=== PATIENT | female | born 1985 | race Caucasian/White ===

== ENCOUNTER 2017-04-07 16:45 | Emergency (ER) | payer BC ==
[2017-04-07 19:00] VITALS: BP 138/80
--- NOTE | 2017-04-07 19:39 | ED ---
Back Pain - HPI Summary HPI Summary: 32 yr old fell on ice two days ago, and landed on tailbone. she has pain left lateral neck, mid thoracic spine, low lumbar and left pelvis and tailbone area. Pain is moderate. No fever and no chills. No focal weakness. No other complaints. - History of Current Complaint Chief Complaint: UCUpperExtremity Stated Complaint: BACK PAIN S/P FALL ON 04/05 Time Seen by Provider: 04/07/17 19:04 Hx Last Menstrual Period: 04/03/17 Pain Intensity: 7 - Allergies/Home Medications Allergies/Adverse Reactions: Allergies Allergy/AdvReac Type Severity Reaction Status Date / Time No Known Allergies Allergy Verified 04/07/17 19:01 Home Medications: Home Medications Citalopram TAB* [CeleXA TAB*] 10 mg PO DAILY 04/07/17 [History Confirmed ] Ibuprofen TAB* [Advil TAB*] 800 mg PO Q6H PRN 04/07/17 [History Confirmed ] PMH/Surg Hx/FS Hx/Imm Hx Infectious Disease History: No Infectious Disease History: Denies: Traveled Outside the [place] in Last 30 Days - Family History Known Family History: Positive: None - Social History Occupation: Employed Full-time Alcohol Use: Occasionally Substance Use Type: Reports: None Smoking Status (MU): Never Smoked Tobacco Review of Systems Constitutional: Negative Eyes: Negative ENT: Negative Positive: Other - spine pain after fall on ice. Neurological: Negative Negative: Weakness, Paresthesia, Numbness All Other Systems Reviewed And Are Negative: Yes Physical Exam Vital Signs On Initial Exam: Initial Vitals Temp Pulse Resp BP Pulse Ox 98.7 F 58 16 138/80 100 04/07/17 18:49 04/07/17 18:49 04/07/17 18:49 04/07/17 18:49 04/07/17 18:49 Diagnostics - Vital Signs Vital Signs Temp Pulse Resp BP Pulse Ox 04/07/17 18:49 98.7 F 58 16 138/80 100 - Laboratory Lab Statement: Any lab studies that have been ordered have been reviewed, and results considered in the medical decision making process. - Radiology cervical,thoracic, lumbar and sacral, coxxyx and pelvis Xray Interpretation: Positive (See Comments) - highly questionable left inferior pubic ramus fracture, non displaced. Radiology Interpretation Completed By: Radiologist Back Pain Course/Dx - Course Course Of Treatment: 32 yr old female with back pain. CTLS films neg. Questionable inferior left pubic ramus fracture. Give crutches. weight bear as tolerates and follow up with Dr Allen, orthopedic.s - Diagnoses Provider Diagnoses: Inferior pubic ramus fracture Discharge - Discharge Plan Condition: Good Disposition: HOME Patient Education Materials: Pelvic Fracture (ED) Referrals: No Primary Care Phys,NOPCP [Primary Care Provider] - Federico Allen MD [Medical Doctor] -
--- NOTE | 2017-04-07 20:48 | RAD ---
INDICATION: Left-sided neck and back pain after slip and fall injury 2 days earlier COMPARISON: None. TECHNIQUE: 5 views of the cervical spine, 2 views of the thoracic spine where views of the lumbar spine were obtained. FINDINGS: There is nonspecific straightening of the normal cervical lordosis more superiorly. The vertebral bodies and facet joints are otherwise appropriately aligned. There is no significant spondylolisthesis. There is no prevertebral soft tissue swelling. The dens appears to be intact. There is no atlantodental widening. Thoracic spine is intact and appropriately aligned. 4 views of the lumbar spine show the vertebral bodies to be intact and appropriately aligned. There is no significant spondylolisthesis. IMPRESSION: Nonspecific straightening of the normal lordosis of the upper cervical spine in this otherwise normal-appearing radiographic series of the cervical, thoracic and lumbar spine. The appearance of the cervical spine could be due to muscle spasm. No definite spine fracture or dislocation is identified. If the patient's symptoms persist, follow-up imaging is recommended.
--- NOTE | 2017-04-07 20:56 | RAD ---
INDICATION: Left elbow pain since slipping on ice 2 days earlier TECHNIQUE: An AP view of the pelvis and 3 views of the sacrum and coccyx were obtained. FINDINGS: There is a faint lucent line overlying the medullary bone of the left medial inferior pubic ramus seen on the AP view of the sacrum. The iliopectineal and ilioischial lines are intact. There is mild irregularity of the symphysis pubis but this appearance appears chronic. Otherwise the sacrum and coccyx appear to be intact. There is no definite fracture of the sacrum or coccyx. Incidentally noted is what appears to be a tampon in the midline pelvis. IMPRESSION: Highly questionable nondisplaced fracture involving the left inferior pubic ramus. Please correlate to physical exam findings.
== END 2017-04-07 21:32 | disposition home or self-care (01) ==
LOC: UCCORT 16:45
DX: S32.592A Other specified fracture of left pubis, initial encounter for closed fracture (principal); W00.0XXA Fall on same level due to ice and snow, initial encounter; Y93.9 Activity, unspecified; Y92.9 Unspecified place or not applicable; M25.522 Pain in left elbow; M54.2 Cervicalgia; M54.9 Dorsalgia, unspecified
CPT/HCPCS: 72050; 72070; 72110; 72170; 72220; 99201; G0463

== ENCOUNTER 2018-01-26 11:08 | Emergency (ER) | payer BC ==
[2018-01-26 11:48] VITALS: BP 122/84
--- NOTE | 2018-01-26 12:01 | UC ---
Respiratory Complaint HPI - HPI Summary HPI Summary: 33 yo female presents with a dry cough for the last 2 weeks. Over the last 3-4 days she has been having a mild productive cough, sinus congestion/pressure, and post nasal drip. She has been taking mucinex and a cough suppressant with good relief at first, but this is no longer helping. She denies fever, chills, sore throat, SOB. She does not smoke. - History of Current Complaint Chief Complaint: UCRespiratory Stated Complaint: COUGH (2WKS) Time Seen by Provider: 01/26/18 11:53 Hx Obtained From: Patient Hx Last Menstrual Period: 01/05/18 Severity Initially: Mild Severity Currently: Mild Pain Intensity: 3 Pain Scale Used: 0-10 Numeric Character: Cough: Nonproductive - Allergies/Home Medications Allergies/Adverse Reactions: Allergies Allergy/AdvReac Type Severity Reaction Status Date / Time No Known Allergies Allergy Verified 01/26/18 11:42 PMH/Surg Hx/FS Hx/Imm Hx Psychological History: Anxiety, Depression - Surgical History Surgical History: None Surgery Procedure, Year, and Place: DENIES - Family History Known Family History: Positive: None Family History: no reported medical problems in family lineage - Social History Occupation: Employed Full-time Lives: With Family Alcohol Use: Rare Substance Use Type: None Smoking Status (MU): Never Smoked Tobacco - Immunization History Most Recent Influenza Vaccination: NONE Most Recent Tetanus Shot: UTD Most Recent Pneumonia Vaccination: NONE Review of Systems All Other Systems Reviewed And Are Negative: Yes Constitutional: Positive: Negative Skin: Positive: Negative Eyes: Positive: Negative ENT: Positive: Nasal Discharge, Sinus Congestion Respiratory: Positive: Cough Cardiovascular: Positive: Negative Gastrointestinal: Positive: Negative Neurovascular: Positive: Negative Neurological: Positive: Negative Psychological: Positive: Negative Physical Exam - Summary Physical Exam Summary: GENERAL: NAD. WDWN. No pain distress. SKIN: No rashes, sores, lesions, or open wounds. HEENT: Head: AT/NC Eyes: EOM intact. Conjunctiva clear without inflammation or discharge. Ears: Hearing grossly normal. TMs intact, no bulging, erythema, or edema. Nose: Nasal mucosa pink and moist. TTP maxillary and frontal sinus. Throat: Posterior oropharynx without exudates, erythema, or tonsillar enlargement. Uvula midline. NECK: Supple. Nontender. No lymphadenopathy. CHEST: CTAB. No r/r/w. No accessory muscle use. Breathing comfortably and in no distress. CV: RRR. Without m/r/g. Pulses intact. Cap refill <2seconds NEURO: Alert. PSYCH: Age appropriate behavior. Triage Information Reviewed: Yes Vital Signs: Initial Vital Signs Temp 98.2 F 01/26/18 11:43 Pulse 76 01/26/18 11:43 Resp 14 01/26/18 11:43 BP 122/84 01/26/18 11:43 Pulse Ox 100 01/26/18 11:43 Vital Signs Reviewed: Yes Diagnostic Evaluation - Laboratory O2 Sat by Pulse Oximetry: 100 Respiratory Course/Dx - Course Course Of Treatment: Bronchitis - Differential Dx/Diagnosis Provider Diagnosis: Bronchitis Discharge - Sign-Out/Discharge Documenting (check all that apply): Patient Departure All imaging exams completed and their final reports reviewed: No Studies - Discharge Plan Condition: Stable Disposition: HOME Prescriptions: Azithromycin TAB* [Zithromax TAB (Z-GREGORY) 250 mg #6 tabs] 2 tab PO .TODAY, THEN 1 DAILY #1 gregory Benzonatate CAP* [Tessalon 100 MG CAP*] 100 mg PO TID PRN #21 cap PRN Reason: Cough Codeine Phosphate/Guaifenesin [Guaifen-Codeine 100-10 mg/5 ml] 5 ml PO BEDTIME PRN #35 ml MDD 5mL PRN Reason: Cough Patient Education Materials: Acute Bronchitis (ED) Referrals: Kirsten Mcgill [Primary Care Provider] - Additional Instructions: If you develop a fever, shortness of breath, chest pain, new or worsening symptoms - please call your PCP or go to the ED. - Billing Disposition and Condition Condition: STABLE Disposition: Home
== END 2018-01-26 12:10 | disposition home or self-care (01) ==
LOC: UCCORT 11:08
DX: J40 Bronchitis, not specified as acute or chronic (principal)
CPT/HCPCS: 99212; G0463

== ENCOUNTER 2019-01-01 18:23 | Emergency (ER) | payer BC ==
[2019-01-01 18:53] VITALS: BP 115/78
--- NOTE | 2019-01-01 19:57 | UC ---
Lower Extremity/Ankle HPI - HPI Summary HPI Summary: per RM triage: "On Friday, started feeling pain in LEFT lower extremity. Denies injury to LLE. On Friday night pt noticed some redness/swelling on LLE. On Friday morning spoke w/ OB who recommend go to ER to r/o DVT; had ultrasound done and negative for DVT. Dx muscle sprain; recommend heating pad. Pt is concerned bc redness and swelling seems to be getting worse. Pt is 36 weeks on Friday. Painful to ambulate. " -this is 3rd . no complications. healthy . had US this week at ER, heart beat is good. + movement. no bleedings/potting -has + varicose veinsg that have gotten worse w/ each -no f/c -heat made it worse -ice seems to help - History of Current Complaint Chief Complaint: Sandra Stated Complaint: LEFT LOWER LEG CONCERN Time Seen by Provider: 01/01/19 19:33 Hx Last Menstrual Period: 01/05/18 Pain Intensity: 3 - Allergies/Home Medications Allergies/Adverse Reactions: Allergies Allergy/AdvReac Type Severity Reaction Status Date / Time No Known Allergies Allergy Verified 01/01/19 18:45 Home Medications: Home Medications Vitamin TAB* 1 tab PO DAILY 01/01/19 [History Confirmed 01/01/19] PMH/Surg Hx/FS Hx/Imm Hx Previously Healthy: Yes - Surgical History Surgical History: None Surgery Procedure, Year, and Place: DENIES - Family History Known Family History: Positive: Non-Contributory Family History: no reported medical problems in family lineage - Social History Alcohol Use: None Substance Use Type: None Smoking Status (MU): Never Smoked Tobacco - Immunization History Most Recent Influenza Vaccination: NONE Most Recent Tetanus Shot: UTD Most Recent Pneumonia Vaccination: NONE Review of Systems All Other Systems Reviewed And Are Negative: Yes Constitutional: Positive: Negative Skin: Positive: Other - see above Eyes: Positive: Negative ENT: Positive: Negative Respiratory: Positive: Negative. Negative: Shortness Of Breath, Cough Cardiovascular: Positive: Negative. Negative: Palpitations, Chest Pain Gastrointestinal: Positive: Negative Genitourinary: Positive: Negative Motor: Positive: Negative Neurovascular: Positive: Negative Musculoskeletal: Positive: Other: - see above Neurological: Positive: Negative Psychological: Positive: Negative Is Patient Immunocompromised?: No Physical Exam Triage Information Reviewed: Yes Appearance: Well-Appearing, No Pain Distress, Well-Nourished - very pleasant, good historian Vital Signs: Initial Vital Signs Temp 97.5 F 01/01/19 18:46 Pulse 74 01/01/19 18:46 Resp 14 01/01/19 18:46 BP 115/78 01/01/19 18:46 Pulse Ox 100 01/01/19 18:46 ENT Exam: Normal Respiratory Exam: Normal Respiratory: Positive: Lungs clear, Normal breath sounds, No respiratory distress, No accessory muscle use Cardiovascular Exam: Normal Cardiovascular: Positive: RRR, No Murmur Abdominal Exam: Normal - gravid, NT Musculoskeletal: Positive: Other: - left proximal coreen-medial lower leg w/ noted are aof mild swelling and tenderness in area of known varicose veings that extneds anterolaterally. cool to touch. no calf tenderness or swelling. no streaks. slightly erythemaoutous in color but not significant Neurological Exam: Normal Psychological Exam: Normal Skin: Positive: Other - see above Lower Extremity Course/Dx - Course Course Of Treatment: 36 wks w/ 3rd w/ known varcisoe veings w/ superficial phlebitis. Had US to r/o DVT this week. low suspicion for DVT anteriorly. -she knows she has varicocity in that area. -treat as phelbitis. f/u w/ OB or PCP, sooner if worsens. she understood me well and is veryt agreeable. - Differential Dx/Diagnosis Differential Diagnosis/HQI/PQRI: Bursitis, Cellulitis, Contusion, Phlebitis, Sprain, Strain Provider Diagnosis: Phlebitis Discharge ED - Sign-Out/Discharge Documenting (check all that apply): Patient Departure All imaging exams completed and their final reports reviewed: No Studies - Discharge Plan Condition: Stable Disposition: HOME Patient Education Materials: Phlebitis (ED) Referrals: Kirsten Mcgill [Primary Care Provider] - Additional Instructions: You can call your PCP or your OB in 3 days. Please follow up in ER with any worsening symptoms. Tylenol for pain. You said that the ice helps more than heat so you can continue with that. Keep your leg elevated. If it becomes warm. you get fevers/chills, this may be a sign of infection and may require an antibiotic. - Billing Disposition and Condition Condition: STABLE Disposition: Home
== END 2019-01-01 20:04 | disposition home or self-care (01) ==
LOC: UCCORT 18:23
DX: O22.23 Superficial thrombophlebitis in pregnancy, third trimester (principal); I80.02 Phlebitis and thrombophlebitis of superficial vessels of left lower extremity; Z3A.36 36 weeks gestation of pregnancy
CPT/HCPCS: 99211; G0463